=== PATIENT | female | born 1930 | race Caucasian/White ===

== ENCOUNTER → 2018-07-31 | Day surgery (SDC) | payer OTHER, BC ==
[2018-07-30 15:05] VITALS: BMI 18.8
[2018-07-31 10:52] VITALS: TEMP 97.6
[2018-07-31 14:28] VITALS: BP 167/64; PULSE 53
--- NOTE | 2018-08-01 15:26 | PATH ---
Surgical Pathology Report Patient Name: JULIEN GONSALEZ [facility] Rec. #: [id number] /Age/Gender: 1930 (Age: 87) / F Account: [id number] Location: U-ENDOSCOPY Taken: 07/31/2018 Received: 07/31/2018 Reported: 08/01/2018 Physicians: Willis Goins M.D. Specimen(s) Received A: BX ANTRUM B: BX OF FUNDUS POLYP Clinical History Weight loss Postoperative diagnosis: Fundus polyp Final Diagnosis A. STOMACH, ANTRUM, BIOPSY: GASTRIC ANTRAL MUCOSA WITH MODERATE CHRONIC GASTRITIS. IMMUNOHISTOCHEMICAL STAIN FOR H. PYLORI IS NEGATIVE. B. FUNDUS, POLYP, BIOPSY: Polypoid Gastric mucosa with moderate to severe chronic gastritis and focal foveolar hyperplasia. IMMUNOHISTOCHEMICAL STAIN FOR H. PYLORI IS POSITIVE (RARE). Electronically Signed Carly Perez M.D. Gross Description A. Received in formalin, labeled "antrum" are 2 ryder, irregular portions of soft tissue ranging in size from 0.1 to 0.4 cm. in greatest dimension. The specimens are submitted in toto in one cassette. B. Received in formalin, labeled "fundus polyp" are 2 ryder, irregular portions of soft tissue measuring 0.2 and 0.3 cm. in greatest dimension. The specimens are submitted in toto in one cassette. MLSZ/07/31/2018 sanml/07/31/2018
== END | disposition home or self-care (01) ==
LOC: JASU-ENDO 08:29
PROVIDERS: ATTEND Internal Medicine Gastroenterology
PROC: 0DB68ZX Excision of Stomach, Via Natural or Artificial Opening Endoscopic, Diagnostic (ICD-10-PCS; principal; 2018-07-31 11:15)
DX: R63.4 Abnormal weight loss (principal); K31.7 Polyp of stomach and duodenum
CPT/HCPCS: 88305-TC; 88342-TC

== ENCOUNTER 2019-01-07 03:24 | Emergency (ER) | payer OTHER, BC ==
--- NOTE | 2019-01-07 03:58 | PDOC ---
History of Present Illness - General Stated Complaint: STOMACH PAIN Time Seen by Provider: 01/07/19 03:58 History Source: Patient Exam Limitations: No Limitations - History of Present Illness Initial Comments: 01/07/19 04:00 88 year old female with PMH right lobe liver hemangioma, chronic gastritis, fatty liver presented to ED for right sided flank pain. Pt stated her symptoms are constant, no alleviating or aggravating factors, radiating down to her right groin. Pt denied nausea, vomiting, diarrhea, constipation, fever, chills, chest pain, shortness of breath. Pt reported taking many supplements. Allergies: Tylenol (fatty liver), Percocet (nausea) Past History - Past Medical History Allergies/Adverse Reactions: Allergies Allergy/AdvReac Type Severity Reaction Status Date / Time acetaminophen [From Percocet] Allergy Severe Nausea Verified 07/30/18 14:56 oxycodone [From Percocet] Allergy Severe Nausea Verified 07/30/18 14:56 latex Allergy Mild Rash Verified 07/31/18 09:16 thimerosal Allergy Mild Rash Verified 07/31/18 09:17 Home Medications: Ambulatory Orders Ascorbic Acid [Vitamin C] 500 mg PO DAILY 07/30/18 Guru/D3/Mag11/Zinc/[employer]/Tod/Bor [Caltrate 600+D Plus Tablet] 1 each PO DAILY Magnesium Oxide [Magnesium] 400 mg PO DAILY 07/30/18 Tamsulosin HCl [Flomax] 0.4 mg PO DAILY #3 capsule 01/07/19 Liver Disease: Yes (RT LOBE HEMANGIOMA SINCE 1994) - Surgical History Abdominal Surgery: No Appendectomy: No Cardiac Surgery: No Cholecystectomy: No Lung Surgery: No Neurologic Surgery: No Orthopedic Surgery: No - Suicide/Smoking/Psychosocial Hx Smoking History: Never smoked Have you smoked in the past 12 months: No Hx Alcohol Use: Yes (OCCA.) Drug/Substance Use Hx: No Review of Systems - Review of Systems Able to Perform ROS?: Yes Comments:: 01/07/19 04:16 General: denied fever, chills, generalized weakness. HEENT: denied sore throat, rhinorrhea, ear pain. Heart: denied chest pain, palpitations, syncope, diaphoresis. Respiratory: denied shortness of breath, cough, sputum production, hemoptysis. Abdomen: admitted to nausea. denied abdominal pain, vomiting, diarrhea, constipation, blood in stool. : admitted to flank pain. denied dysuria, increased urinary frequency, hematuria, urinary incontinence. Back: denied back pain. Musculoskeletal: denied joint pain, muscle pain, joint swelling. Neurological: denied headache, dizziness, numbness, tingling, weakness. Skin: denied rash, laceration, abrasion. *Physical Exam - Physical Exam Comments: 01/07/19 04:16 Constitutional: Well-developed, appearing stated age. thin. HEENT: head is normocephalic, atraumatic. EOMI. PERRLA. Neck: supple. Full ROM. Heart: regular rhythm. no murmurs, rubs or gallops. Lungs: clear to auscultation bilaterally. no crackles, rhonchi or wheezing. no stridor. Back: positive right sided CVA tenderness. Abdomen: soft, nontender. normal bowel sounds. no rebound, guarding, masses. Extremities: peripheral pulses intact. no lower extremity edema. Neurological: CN 2-12 grossly intact. moves all four extremities. Psych: awake, alert, oriented x3. follows commands. answers questions appropriately. ED Treatment Course - LABORATORY CBC & Chemistry Diagram: 01/07/19 04:23 01/07/19 04:23 Medical Decision Making - Medical Decision Making 01/07/19 04:16 88 year old female with above PMH presented to ED for right sided flank pain. Initial Vital Signs Temp Pulse Resp BP Pulse Ox 97.3 F L 62 18 186/79 H 100 01/07/19 04:31 01/07/19 04:31 01/07/19 04:31 01/07/19 04:31 01/07/19 04:31 Afebrile. No tachycardia. No tachypnea. Hypertensive - pt is in pain No hypoxia on room air Labs ordered: CBC, CMP, troponin, lipase Imaging ordered: CT abdomen/pelvis Medications ordered: normal saline bolus 1000 cc, morphine 2 mg IV once, zofran 4 mg IV once -Pt reported her allergy to Percocet is nausea EKG performed at 0409: rate 57, regular rhythm, normal axis, normal intervals, 1 PAC, no acute ST changes. 01/07/19 05:17 CBC WBC 9.7 K/mm3 (4.0-10.0) 01/07/19 04:23 RBC 4.76 M/mm3 (3.60-5.2) 01/07/19 04:23 Hgb 13.9 GM/dL (10.7-15.3) 01/07/19 04:23 Hct 42.5 % (32.4-45.2) 01/07/19 04:23 MCV 89.3 fl (80-96) 01/07/19 04:23 MCH 29.3 pg (25.7-33.7) 01/07/19 04:23 MCHC 32.8 g/dl (32.0-36.0) 01/07/19 04:23 RDW 15.2 % (11.6-15.6) 01/07/19 04:23 Plt Count 291 K/MM3 (134-434) 01/07/19 04:23 MPV 7.8 fl (7.5-11.1) 01/07/19 04:23 Absolute Neuts (auto) 7.9 K/mm3 (1.5-8.0) 01/07/19 04:23 Neutrophils % 81.5 % (42.8-82.8) 01/07/19 04:23 Lymphocytes % 12.6 % (8-40) D 01/07/19 04:23 Monocytes % 4.7 % (3.8-10.2) 01/07/19 04:23 Eosinophils % 0.7 % (0-4.5) 01/07/19 04:23 Basophils % 0.5 % (0-2.0) 01/07/19 04:23 Nucleated RBC % 0 % (0-0) 01/07/19 04:23 No leukocytosis. No anemia. CMP Sodium 140 mmol/L (136-145) 01/07/19 04:23 Potassium 3.7 mmol/L (3.5-5.1) 01/07/19 04:23 Chloride 102 mmol/L (98-107) 01/07/19 04:23 Carbon Dioxide 29 mmol/L (21-32) 01/07/19 04:23 Anion Gap 8 MMOL/L (8-16) 01/07/19 04:23 BUN 22.4 mg/dL (7-18) H 01/07/19 04:23 Creatinine 0.9 mg/dL (0.55-1.3) 01/07/19 04:23 Est GFR (CKD-EPI)AfAm 66.16 01/07/19 04:23 Est GFR (CKD-EPI)NonAf 57.09 01/07/19 04:23 Random Glucose 139 mg/dL (74-106) H 01/07/19 04:23 Lactic Acid 1.7 mmol/L (0.4-2.0) 01/07/19 04:23 Calcium 9.1 mg/dL (8.5-10.1) 01/07/19 04:23 Magnesium 2.1 mg/dL (1.8-2.4) 01/07/19 04:23 Total Bilirubin 0.4 mg/dL (0.2-1) 01/07/19 04:23 AST 18 U/L (15-37) 01/07/19 04:23 ALT 19 U/L (13-61) 01/07/19 04:23 Alkaline Phosphatase 124 U/L (45-117) H 01/07/19 04:23 Troponin I < 0.02 ng/ml (0.00-0.05) 01/07/19 04:23 Total Protein 7.6 g/dl (6.4-8.2) 01/07/19 04:23 Albumin 4.1 g/dl (3.4-5.0) 01/07/19 04:23 Lipase 178 U/L (73-393) 01/07/19 04:23 No electrolyte abnormalities. No CHENCHO. Dehydration - BUN/Cr >20 No lactic acidosis No transaminitis Troponin undetectable Lipase wnl Pending CT. Medications ordered: toradol 30 mg IV once 01/07/19 05:39 Pt reassessed, sleeping comfortably. Pending CT read. 01/07/19 05:50 CT report: FINDINGS: There is a 1.5 mm distal right obstruction causes moderate right hydronephrosis/hydroureter. This stone looks like it may be about to pass into the urinary bladder lumen. No left urinary tract stone or obstruction. Please note that this is a noncontrast scan and therefore nondiagnostic for pyelonephritis. There is a 2.3 cm low-density lesion in the right lobe of the liver which does not look like a cyst and will need further evaluation to rule out neoplasm. Normal spleen. Normal pancreas. Normal adrenal glands. No obvious gallbladder abnormalities. No bowel obstruction or inflammation. Scattered colon diverticula. No diverticulitis or colitis. Calcified uterine fibroids No free intraperitoneal air or free fluid. Osseous structures are intact. Medications ordered: flomax 0.4 mg PO once Pt and daughter at bedside informed of results and need for follow up with PCP. Daughter given copy of CT report. Pt informed to stop taking supplements until evaluated by PCP. Pending UA. 01/07/19 06:11 Urine Test Results Urine Color Yellow 01/07/19 05:55 Urine Appearance Clear 01/07/19 05:55 Urine pH 8.0 (5.0-8.0) 01/07/19 05:55 Ur Specific [place] 1.011 (1.010-1.035) 01/07/19 05:55 Urine Protein Negative (NEGATIVE) 01/07/19 05:55 Urine Glucose (UA) Negative (NEGATIVE) 01/07/19 05:55 Urine Ketones Negative (NEGATIVE) 01/07/19 05:55 Urine Blood 1+ (NEGATIVE) H 01/07/19 05:55 Urine Nitrite Negative (NEGATIVE) 01/07/19 05:55 Urine Bilirubin Negative (NEGATIVE) 01/07/19 05:55 Ur Leukocyte Esterase Negative (NEGATIVE) 01/07/19 05:55 Negative for UTI. Positive for hematuria. Pt discharged. Discharge medications: Flomax 0.4 mg PO daily x3 pills *DC/Admit/Observation/Transfer Diagnosis at time of Disposition: Kidney stone - Discharge Dispostion Disposition: HOME Condition at time of disposition: Improved Decision to Admit order: No - Prescriptions Prescriptions: Tamsulosin HCl [Flomax] 0.4 mg PO DAILY #3 capsule - Referrals Referrals: Ave Macias [Primary Care Provider] - - Patient Instructions Printed Discharge Instructions: DI for Kidney Stones Additional Instructions: You were seen today for flank pain. Your CatScan showed a kidney stone. Your lab work was normal. Your urine analysis showed no urinary tract infection. I have sent a prescription to your pharmacy for Flomax to help pass the stone. Take ibuprofen 600 mg every 6-8 hours for your pain. Buy over the counter. Take with food as this medication can irritate your stomach. Follow up with your primary care doctor within 3 days. Your care is not complete until you follow up. Bring all paperwork given to you today to your appointment. Return to the Emergency Department for increasing pain despite ibuprofen use, chest pain, shortness of breath, fever, burning with urination, blood in urine, or any other new, worsening or concerning symptoms. - Post Discharge Activity Forms/Work/School Notes: Back to Work
[2019-01-07] MEDS ORDERED: SODIUM CHLORIDE 1,000 ML IV STA (04:12)
--- NOTE | 2019-01-07 04:26 | PDOC ---
Attending Attestation - Resident Resident Name: SeverinoCarltona - ED Attending Attestation I have performed the following: I have examined & evaluated the patient, The case was reviewed & discussed with the resident, I agree w/resident's findings & plan, Exceptions are as noted - HPI HPI: 01/07/19 06:56 88F pmh of Liver hemangioma, chronic gastritis here with R sided flank px. Px is sharp, constant, radiating down to groin. No f/c, sob, cp - Physicial Exam PE: 01/07/19 06:57 Agree with exam as documented by resident - Medical Decision Making 01/07/19 06:57 exam consistent with nephrolithiasis consider pyelo, hepatobiliary pathology, pancreatic pathology f/u labs, ua, analgesia f/u ct imaging with stone dc with rx and instructions
[2019-01-07] MEDS ORDERED: morphine CARPU-JECT 4 MG/1 ML DISP.SYRIN IVPUSH ONE ×2 (04:28→04:53)
[2019-01-07] MEDS ORDERED: ONDANSETRON 4 MG/2 ML VIAL IVPUSH ONE (04:28)
[2019-01-07 04:40] VITALS: TEMP 97.3; BMI 18.1
[2019-01-07] MEDS ORDERED: morphine SULFATE 4 MG/ML VIAL ONE (04:43)
[2019-01-07] MEDS ORDERED: ONDANSETRON 4 MG/2 ML VIAL ONE (04:43)
[2019-01-07 04:47] LABS: BASO % 0.5 % (0-2.0); EOS % 0.7 % (0-4.5); HEMATOCRIT 42.5 % (32.4-45.2); HEMOGLOBIN 13.9 GM/dL (10.7-15.3); LYMPH % 12.6 % (8-40); MCH 29.3 pg (25.7-33.7); MCHC 32.8 g/dl (32.0-36.0); MEAN CELL VOLUME 89.3 fl (80-96); MEAN PLT VOLUME 7.8 fl (7.5-11.1); MONO % 4.7 % (3.8-10.2); NEUT % 81.5 % (42.8-82.8); PLATELET COUNT 291 K/MM3 (134-434); RBC 4.76 M/mm3 (3.60-5.2); RDW 15.2 % (11.6-15.6); WHITE BLOOD COUNT 9.7 K/mm3 (4.0-10.0)
[2019-01-07 04:57] LABS: INR 0.92 (0.83-1.09); PROTHROMBIN TIME (PATIENT) 10.8 SEC (9.7-13.0)
[2019-01-07 04:59] LABS: ACTIVATED PTT 46.9 SECONDS (25.2-36.5)
[2019-01-07 05:07] LABS: ALBUMIN 4.1 g/dl (3.4-5.0); BILIRUBIN,TOTAL 0.4 mg/dL (0.2-1); BLOOD UREA NITROGEN 22.4 mg/dL (7-18); CALCIUM 9.1 mg/dL (8.5-10.1); CREATININE 0.9 mg/dL (0.55-1.3); MAGNESIUM 2.1 mg/dL (1.8-2.4); POTASSIUM 3.7 mmol/L (3.5-5.1); TOT PROT 7.6 g/dl (6.4-8.2)
[2019-01-07] MEDS ORDERED: KETOROLAC TROMETHAMINE 30 MG/1 ML VIAL IVPUSH ONE (05:17)
[2019-01-07] MEDS ORDERED: TAMSULOSIN HCL 0.4 MG CAP PO ONE (05:50)
[2019-01-07 06:08] LABS: EPI CELLS 0.6 /HPF (0-5/HPF); HYALINE CASTS 1 /lpf (0-8); URINE APPEARANCE CLEAR; URINE BACTERIA 2.4 /hpf (NEGATIVE); URINE BILIRUBIN NEGATIVE (NEGATIVE); URINE COLOR YELLOW; URINE GLUCOSE (UA) NEGATIVE (NEGATIVE); URINE KETONE NEGATIVE (NEGATIVE); URINE LEUK ESTERASE NEGATIVE (NEGATIVE); URINE NITRITE NEGATIVE (NEGATIVE); URINE PROTEIN NEGATIVE (NEGATIVE); URINE RBC 53 /hpf (0-4); URINE UROBILINOGEN 0.2 mg/dL (0.2-1.0); URINE WBC 0 /hpf (0-5)
[2019-01-07] MEDS ORDERED: TAMSULOSIN HCL 0.4 MG CAP ONE (06:10)
[2019-01-07] MEDS ORDERED: KETOROLAC TROMETHAMINE 30 MG/1 ML VIAL ONE (06:10)
[2019-01-07 07:04] VITALS: BP 148/74; PULSE 68
--- NOTE | 2019-01-07 09:33 | EKG ---
Test Reason : Blood Pressure : / mmHG Vent. Rate : 057 BPM Atrial Rate : 057 BPM P-R Int : 186 ms QRS Dur : 084 ms QT Int : 408 ms P-R-T Axes : 060 049 069 degrees QTc Int : 397 ms SINUS BRADYCARDIA WITH PREMATURE ATRIAL COMPLEXES BASELINE ARTIFACT NO PREVIOUS ECGS AVAILABLE Confirmed by JOSE WISE, SOFIA ([id number]) on 01/07/2019 9:33:19 AM Referred By: Confirmed By:SOFIA GARCIA MD
== END 2019-01-07 07:05 | disposition home or self-care (01) ==
LOC: JER 03:24
PROC: 3E0337Z Introduction of Electrolytic and Water Balance Substance into Peripheral Vein, Percutaneous Approach (ICD-10-PCS; principal; 2019-01-07)
PROC: 3E033NZ Introduction of Analgesics, Hypnotics, Sedatives into Peripheral Vein, Percutaneous Approach (ICD-10-PCS; 2019-01-07)
PROC: 3E0333Z Introduction of Anti-inflammatory into Peripheral Vein, Percutaneous Approach (ICD-10-PCS; 2019-01-07)
PROC: 3E033GC Introduction of Other Therapeutic Substance into Peripheral Vein, Percutaneous Approach (ICD-10-PCS; 2019-01-07)
DX: N13.2 Hydronephrosis with renal and ureteral calculous obstruction (principal); R03.0 Elevated blood-pressure reading, without diagnosis of hypertension
CPT/HCPCS: 36415; 74176-TC; 80053; 81003; 83605; 83690; 83735; 84484; 85025; 85610; 85730; 87077; 87086; 93005; 93010; 96361; 96374; 96375; 99282-25; J7030